=== PATIENT | female | born 1985 | race Caucasian/White ===

== ENCOUNTER 2022-10-31 14:36 | Observation (INO) | payer SELFPAY ==
[~2022-10-31] VITALS: Ht 170.2 cm; Wt 77.1 kg
[2022-10-31] MEDS ORDERED: LOV40I SUBQ (15:20)
== END 2022-10-31 15:35 | disposition home or self-care (01) ==
LOC: MLD 14:36
PROVIDERS: ADMIT Obstetrics & Gynecology; ATTEND Obstetrics & Gynecology
DX: O26.892 Other specified pregnancy related conditions, second trimester (principal); R55 Syncope and collapse; Z3A.21 21 weeks gestation of pregnancy
CPT/HCPCS: 82948; G0378

== ENCOUNTER 2023-12-11 08:14 | Emergency (ER) | payer MEDICAID, OTHER ==
[~2023-12-11] VITALS: Ht 167.6 cm; Wt 72.6 kg
[~2023-12-11 08:14] MED LIST: LOV40I SUBQ
[2023-12-11 09:10] VITALS: BP 104/66; PULSE 75; RESP 18; TEMP 97; O2SAT 98
[2023-12-11] MEDS ORDERED: CEPH-588 PO (11:43)
[2023-12-11 12:13] LABS: APPEARANCE,URINE CLEAR (CLEAR); BILIRUBIN,URINE NEGATIVE (NEGATIVE); BLOOD, URINE 1+ (NEGATIVE); COLOR,URINE YELLOW (YELLOW); LEUKOCYTE ESTERASE ,URINE TRACE (NEGATIVE); NITRITE, URINE NEGATIVE (NEGATIVE); PH,URINE 6.5 (5.0-9.0); PROTEIN,URINE NEGATIVE (NEGATIVE); UGLUCOSE NEGATIVE (NEGATIVE); UROBILINOGEN,URINE 0.2 EU/dL (0.2 - 1)
[2023-12-11 12:20] LABS: BACTERIA,URINE OCCASSIONAL /HPF (None Seen); RBC,URINE 0-5 /HPF (0-5); SQUAMOUS EPITHELIAL CELL,UR 0-3 (FEW) /LPF (0-3 (FEW)); WBC,URINE 0-5 /HPF (0-5)
== END 2023-12-11 12:05 | disposition home or self-care (01) ==
LOC: MED 08:14
DX: N39.0 Urinary tract infection, site not specified (principal); R51.9 Headache, unspecified; Z79.899 Other long term (current) drug therapy; Z79.2 Long term (current) use of antibiotics
CPT/HCPCS: 81001; 81025; 87086; 99283